=== PATIENT | female | born 1955 | race Caucasian/White ===

== ENCOUNTER → 2020-05-22 10:17 | Outpatient (CLI) | payer MEDICARE, MEDICAID, SELFPAY ==
--- NOTE | ~2020-05-22 | MM_ITS ---
EXAMINATION: MM screening [facility] HISTORY: Screening TECHNIQUE: Craniocaudal and mediolateral oblique 3-D tomosynthesis images were obtained and synthetic 2-D images were generated. CAD analysis was submitted and interpreted. COMPARISON: Comparison to multiple prior studies sequentially, with oldest reviewed study dated 12/2014. BREAST PARENCHYMAL COMPOSITION: There are scattered areas of fibroglandular density. FINDINGS: There is no evidence of suspicious mass, calcification, or architectural distortion to sugg est malignancy in either breast. There has been no suspicious interval change. IMPRESSION: 1. No mammographic evidence of malignancy. 2. Recommend routine screening mammography in one year. BI-RADS Category 1: Negative Reviewed, dictated and finalized at location A.
== END ==
PROVIDERS: Visit Provider Internal Medicine
DX: Z12.31 Encounter for screening mammogram for malignant neoplasm of breast (principal)
CPT/HCPCS: 77063; 77067

== ENCOUNTER → 2021-09-24 15:38 | Outpatient (CLI) | payer MEDICARE, MEDICAID, SELFPAY ==
--- NOTE | ~2021-09-24 | MM_ITS ---
EXAMINATION: MM screening [facility] HISTORY: Screening mammogram TECHNIQUE: Craniocaudal and mediolateral oblique 3-D tomosynthesis images were obtained and synthetic 2-D images were generated. CAD analysis was submitted and interpreted. COMPARISON: 05/22/2020, 02/03/2019, 01/26/2018 BREAST PARENCHYMAL COMPOSITION: The breasts are almost entirely fatty. FINDINGS: Scattered benign-appearing calcifications are present. There is no evidence of suspicious m ass, calcification, or architectural distortion to suggest malignancy in either breast. There has bee n no suspicious interval change. IMPRESSION: 1. No mammographic evidence of malignancy. 2. Recommend routine screening mammography in one year. BI-RADS Category 2: Benign finding(s). Reviewed, dictated and finalized at location A. 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
== END ==
PROVIDERS: PCP Internal Medicine; Visit Provider Internal Medicine
DX: Z12.31 Encounter for screening mammogram for malignant neoplasm of breast (principal)
CPT/HCPCS: 77063; 77067

== ENCOUNTER → 2022-12-10 12:33 | Outpatient (CLI) | payer MEDICARE, MEDICAID, SELFPAY ==
--- NOTE | ~2022-12-10 | MM_ITS ---
EXAMINATION: MM screening [facility] HISTORY: Screening TECHNIQUE: Craniocaudal and mediolateral oblique 3-D tomosynthesis images were obtained and synthetic 2-D images were generated. CAD analysis was submitted and interpreted. COMPARISON: Comparison to multiple prior studies sequentially, with oldest reviewed study dated 01/06. BREAST PARENCHYMAL COMPOSITION: Breast composed of scattered areas of fibroglandular density. FINDINGS: The left breast is stable without evidence for malignancy. There is a developing cluster of segmental calcifications which are indeterminate in the lower inner quadrant of the right breast. IMPRESSION: 1. Developing indeterminate segmental calcifications lower inner quadrant of the right breast. 2. Magnification views are recommended. BI-RADS Category 0: Incomplete: Needs additional imaging evaluation. Reviewed, dictated and finalized at location A. IMPRESSION: 1. Developing indeterminate segmental calcifications lower inner quadrant of th e right breast. 2. Magnification views are recommended. BI-RADS Category 0: Incomplete: Needs additional imaging evaluation.
== END ==
PROVIDERS: PCP Obstetrics & Gynecology Gynecology; Visit Provider Obstetrics & Gynecology Gynecology
DX: Z12.31 Encounter for screening mammogram for malignant neoplasm of breast (principal); R92.8 Other abnormal and inconclusive findings on diagnostic imaging of breast
CPT/HCPCS: 77063; 77067

== ENCOUNTER → 2022-12-20 14:09 | Outpatient (CLI) | payer MEDICARE, MEDICAID, SELFPAY ==
--- NOTE | ~2022-12-20 | MM_ITS ---
EXAMINATION: MM diagnostic mammo unilat RT HISTORY: Follow-up right breast calcifications TECHNIQUE: Additional 3-D tomosynthesis images of the right breast were performed and synthetic 2-D i mages were generated. CAD analysis was submitted and interpreted. COMPARISON: Comparison to multiple prior studies sequentially, with oldest reviewed study dated 01/06. BREAST PARENCHYMAL COMPOSITION: Breast composed of scattered areas of fibroglandular density FINDINGS: There is segmental indeterminate calcifications in the lower inner quadrant of the right br east, middle third. There are no suspicious masses or architectural distortion. IMPRESSION: 1. Clustered segmental calcifications lower inner quadrants of the right breast. 2. Stereotactic right breast biopsy recommended. BI-RADS category 4, suspicious findings. Reviewed, dictated and finalized at location A. IMPRESSION: 1. Clustered segmental calcifications lower inner quadrants of the right breast . 2. Stereotactic right breast biopsy recommended. BI-RADS category 4, suspicious findings.
== END ==
PROVIDERS: PCP Obstetrics & Gynecology Gynecology; Visit Provider Obstetrics & Gynecology Gynecology
DX: R92.8 Other abnormal and inconclusive findings on diagnostic imaging of breast (principal)
CPT/HCPCS: 77065

== ENCOUNTER 2023-01-20 01:13 | Day surgery (SDC) | payer MEDICARE, MEDICAID, SELFPAY ==
[2023-01-16 09:20] VITALS: BMI 26.9
--- NOTE | 2023-01-16 09:26 | PC.NURSE ---
Report to the Outpatient Waiting Room, entrance under the green pavilion located off [facility], at time 0800 on date 01/20/23. Planned Procedure Time: 1100 (NE[facility]LE LOC AT 0900). Time changes happen often and if your time is changed the preop area will call you the afternoon before. - You and your visitor will be asked to self-screen and do not enter if you have any COVID symptoms. - A mask is optional within the hospital at this time. Patients may have clear liquids (water, carbonated beverages, clear teas, apple juice) until 3 hours prior to surgery with a maximum of 20 ounces. - No food from midnight until time of surgery Take the following medications with a SIP of water the morning of surgery: NONE DO NOT STOP ANY OF YOUR OTHER PRESCRIPTION MEDICATIONS PRIOR TO SURGERY EXCEPT THE FOLLOWING Medications to discontinue per physician: VITAMINS/SUPPLEMENTS Date to take last dose: 01/16/23 Please no make-up, nail bulgarian, hairspray, perfume, deodorant, or body powder the day of surgery. No jewelry (including any body piercings) or valuables the day of surgery, leave them at home. Please take a shower or bath the night before, or the morning of, surgery with an antibacterial soap. Wear comfortable, loose fitting clothing. - Jewelry must be removed prior to entering the operating room. Rings and piercings that are not removed may be cut off. - The hospital will not accept responsibility for valuables. - Please leave all valuables, including medications, at home the day of surgery. If you are going home after surgery, a licensed regional owner operator truck driver must drive you home. - NO public transportation without another adult if you receive anesthesia. - We recommend that an adult stay with you for 24 hours following discharge. - We also recommend that you do not drive, make important decision, drink alcoholic beverages, or take any drugs that were not prescribed by your health care provider for at least 24 hours after your discharge time. Follow any additional instructions given to you from your surgeon. If you or anyone in your household have experienced Covid symptoms in the past week, please notify your surgeon or the nurse liaison at the phone number below for possible testing. Telephone instructions given to PT'S MOM - EVELIN and asked if any additional questions and then verbalized understanding. Patient advised to call surgeon office or pre surgery nurse liaison [phone] if any additional questions.
--- NOTE | ~2023-01-20 | MM_ITS ---
EXAMINATION: MM needle loc RT, MM surgical specimen RT DATE: 01/20/2023 10:34 (accession [id number]), 01/20/2023 12:19 (accession [id number]) INDICATION: Patient presents for excisional biopsy of right breast calcifications TECHNIQUE: The procedure for a mammography-guided needle localization was discussed with the patient. Risks and benefits were detailed including risks of bleeding and infection. The patient verbalized u nderstanding and agreed to proceed. A time out was performed to verify the patient's name, date of , and site of procedure. The josue ent was placed in mediolateral compression, and the skin overlying the medial right breast was prepa red in usual fashion. The skin and subcutaneous soft tissues were infiltrated with 1% lidocaine for l ocal anesthesia. Utilizing mammography guidance, two localization needles were advanced into the righ t breast bracketing the calcifications of interest. Two confirmatory films were obtained. The patient tolerated procedure without immediate complication. A specimen radiograph was performed. FINDINGS: Two view confirmatory films of the right breast demonstrate localization wires bracketing t he calcifications of interest. The calcifications are contained within the surgical specimen. IMPRESSION: 1. Successful mammography-guided right breast needle localization. Reviewed, dictated and finalized at location A. IMPRESSION: 1. Successful mammography-guided right breast needle localization.
[2023-01-20 08:45] VITALS: BP 136/78; PULSE 105; RESP 16; TEMP 36.6; O2SAT 100
[2023-01-20] MEDS: ACETAMINOPHEN 500 MG TABLET 1000 MG PO (09:00)
[2023-01-20] MEDS: KETOROLAC 15 MG/ML VIAL (*BKC) IV PUSH (09:00)
[2023-01-20] MEDS: LACTATED RINGERS 1,000 ML 30 ML IV CONT (09:00)
[2023-01-20 09:44] LABS: Anion Gap 5 mmol/L (8-16); Blood Urea Nitrogen 28 mg/dL (7-17); Carbon Dioxide 29 mmol/L (22-30); Chloride 106 mmol/L (98-107); Estimated CRCL calculation 48 ml/min; Estimated Glomerular Filt Rate 56; Glucose 92 mg/dL (65-110); Potassium 3.7 mmol/L (3.4-5.0); Sodium 140 mmol/L (137-145)
--- NOTE | 2023-01-20 11:07 | WPDHPUPDATE1 ---
History and Physical Update Update Date/Time: 01/20/23 11:07 History and Physical has been reviewed, including an updated exam of the patient. There are NO changes in the patient's condition. Risks, benefits, and alternatives have been discussed and questions answered. Patient agrees to proceed with procedure.
[2023-01-20] MEDS: ceFAZolin 2 GM/D5W 50 ML 2 GM/50 ML BAG IVPB (11:22)
[2023-01-20] MEDS: LIDO 1%/EPINEPHRINE 1:100,000 20 ML VIAL 30 ML INFILTRATE (11:22)
--- NOTE | 2023-01-20 11:24 | WPDANESEPPF ---
Anes - Initial Pre Proc Eval Procedure: Operation Date: 01/20/23 11:15 Proposed Procedures p Excisional Biopsy Right Breast with Mammogram Guided Wire Localization - Delvin Suazo MD Date/Time: 01/20/23 11:24 Surgeon: Delvin Suazo MD Pre Op Diagnosis: susp microcalcification right breast Patient Data Age: 67 Gender: F Height: 1.7 m Weight: 78 kg Last Vital Signs Temp 97.8 F 01/20/23 08:45 Pulse 105 H 01/20/23 08:45 Resp 16 01/20/23 08:45 BP 136/78 01/20/23 08:45 Pulse Ox 100 01/20/23 08:45 O2 Del Method Room Air 01/20/23 08:45 Allergies Allergy/AdvReac Type Severity Reaction Status Date / Time No Known Allergies Allergy Verified 01/20/23 09:28 Home Medications Medication Instructions Recorded Confirmed Type aspirin 81 mg capsule 81 mg PO DAILY 01/08/23 01/20/23 History atorvastatin 40 mg tablet 40 mg PO DAILY 01/08/23 01/20/23 History cholecalciferol (vitamin D3) 25 25 mcg PO DAILY 01/08/23 01/20/23 History mcg (1,000 unit) capsule hydrochlorothiazide 12.5 mg tablet 12.5 mg PO DAILY 01/08/23 01/20/23 History lisinopril 20 mg tablet 20 mg PO DAILY 01/08/23 01/20/23 History naproxen 500 mg tablet 500 mg PO BID 01/08/23 01/20/23 History pantoprazole 20 mg tablet,delayed 20 mg PO QAM 01/08/23 01/20/23 History release Laboratory Tests 01/20/23 09:18 Sodium 140 mmol/L (137-145) Potassium 3.7 mmol/L (3.4-5.0) Chloride 106 mmol/L (98-107) Carbon Dioxide 29 mmol/L (22-30) Anion Gap 5 L mmol/L (8-16) BUN 28 H mg/dL (7-17) Creatinine 1.00 mg/dL (0.7-1.0) Estim Creat Clear Calc 48 ml/min Estimated GFR 56 L (59 - ) Glucose 92 mg/dL (65-110) Calcium 9.0 mg/dL (8.4-10.2) Patient hx anesthesia problems: none Family hx anesthesia problems: none Results Review: All pre-operative results and documents have been reviewed as part of the pre-operative evaluation. [facility] Past Medical History Medical History (Updated 01/08/23 @ 14:43 by AYAZ Perdomo) High cholesterol Hypertension Surgical History Surgical History History of cholecystectomy History of tubal ligation Family History Family History Other Diabetes mellitus Heart disease Hypertension Social History Social History Smoking status: Never smoker Alcohol intake: never Substance use: never Substance use type: does not use Living arrangements: alone Occupation/Education: unemployed Spiritual care concerns: No Anes - Eval Final PreProcedure Day of Procedure 01/20/23 11:24 Patient weight: normal Heart: regular rate and rhythm Lungs: clear to auscultation Airway: Mallampati scale class II Neurological: alert and oriented Last oral intake: >/= 8 hours ASA classification: III Emergent: no Anesthetic plan: proceed Anesthesia type and monitoring: general GIVS and standard monitoring Results Review: All pre-operative results and documents have been reviewed as part of the pre-operative evaluation. Informed Consent: The patient's anesthetic plan and its attendant risks and benefits were discussed with the patient/family/POA. Questions were solicited and answers provided to the satisfaction of the patient/family/POA.
--- NOTE | 2023-01-20 11:51 | SUR.OPER ---
Jeniffer notified of surgery start 1151 from Mammography
[2023-01-20 12:51] VITALS: BP 87/56; PULSE 97; RESP 20; O2SAT 100
--- NOTE | 2023-01-20 13:05 | W.PM.PROC2 ---
Procedure Note - Detailed Date of Procedure 01/20/23 Pre-op Diagnosis susp microcalcification right breast Post-op Diagnosis Same Procedure Performed Wire localized excisional right breast biopsy. 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 She presents now for a wire localized excisional right breast biopsy of the suspicious area of microcalcification. Findings Grossly some fibrocystic changes in the right breast in the area of biopsy. No defined suspicious mass. Specimen mammography revealed that the area of microcalcifications in question were within the tissue that was submitted. Description of Procedure After informed consent was obtained patient was brought to the operating room where she was placed supine position then IV sedation was administered by anesthesia. The area the right breast was then prepped and draped in usual sterile fashion. A time-out was then performed correctly identifying the patient as well as procedure to be performed and verified she was on preoperative IV antibiotics. I reviewed the localization mammograms and there were 2 wires which were bracketing the area suspicious microcalcifications. I then injected 1% lidocaine mixed with 0.5% Marcaine in area between the 2 bracketing J wires. I then made a curved incision in the lower inner portion of the right breast and dissected down through the dermis skin with the scalpel. I then tunneled laterally in the subcapsular space license scissor dissection and then brought the most lateral localizing wire into my incision. I also tunneled subcapsular space with scissor dissection to the more medial localizing guidewire and brought this into my incision as well. I then proceeded to dissect down along the shaft both guidewires until I reached the tips. I then used a combination of sharp scissor dissection to take a wide excision the breast tissue between the 2 getting localization guidewires. Once the space was completely excised from the breast it was sent to pathology for specimen radiograph. The radiologist confirmed that the area suspicious microcalcifications was within the tissues I submitted. I then irrigated out the incision with sterile saline solution. Stasis in the breast parenchyma was then achieved utilizing electrocautery. I then proceeded to close the space within the medial quadrant of the right breast. Interrupted 2-0 plain gut sutures was then used to approximate the breast tissue and try to obliterate as much space as I could. The breast capsule was then cross utilizing noted the to 0 plain gut sutures. The skin edges were approximated lies in a running subcuticular 4 Monocryl suture. The incision was then cleaned and then skin glue still breast dressing was applied. Discharge patient home when stable. May remove dressing in 24 hr and then shower. No soaking incision under water x2 weeks. Protect surgical site from any trauma. Follow up in the office with Dr. Suazo in 1- 2 weeks. Call [phone] for an appointment. Resume home medications and any prescriptions for postoperative narcotic medication will be sent to the patient's pharmacy. If taking any blood thinners, okay to resume blood thinners in 24hours. No driving 3 days or until no longer taking any narcotic pain medications. Wear a supportive bra night day until seen in the clinic. Implants None Estimated Blood Loss 30 Drains No Packing No Pathology Yes Complications No immediate complications Condition Stable Disposition PACU [facility] Billing Surgery - Charge Forward: Surgery Billing
[2023-01-20 13:15] VITALS: BP 110/62; PULSE 86; RESP 20
[2023-01-20 13:45] VITALS: BP 122/70; PULSE 80; RESP 20
== END 2023-01-20 13:00 | disposition home or self-care (01) ==
PROVIDERS: PCP Internal Medicine; Visit Provider Surgery
PROC: (CPT 19125; principal; 2023-01-20 11:15)
DX: N60.11 Diffuse cystic mastopathy of right breast (principal); I10 Essential (primary) hypertension; E78.00 Pure hypercholesterolemia, unspecified; Z79.82 Long term (current) use of aspirin
CPT/HCPCS: 19125; 19281; 36415; 76098; 80048; 88307; A9270; C1769; J0690; J1885; J2250; J2704; J3010; J7120

== ENCOUNTER 2024-07-23 10:43 | Outpatient (CLI) | payer MEDICARE, MEDICAID, SELFPAY ==
--- NOTE | ~2024-07-23 | MM_ITS ---
EXAMINATION: MM screening [facility] BI w l[facility] HISTORY: Screening mammogram TECHNIQUE: Craniocaudal and mediolateral oblique 3-D tomosynthesis images were obtained and synthetic 2-D images were generated. CAD analysis was submitted and interpreted. COMPARISON: 12/10/2022, 09/24/2021, 05/22/2020, 02/03/2019 BREAST PARENCHYMAL COMPOSITION:Not Dense. There are scattered areas of fibroglandular density. FINDINGS: No suspicious mass, calcification, or architectural distortion are identified in either jenny ast to suggest malignancy. There has been no suspicious interval change. IMPRESSION: No mammographic evidence of malignancy. Recommend routine screening mammography in one year. BI-RADS Category 1: Negative Reviewed, dictated and finalized at location .
== END 2024-07-23 10:44 | disposition home or self-care (01) ==
PROVIDERS: PCP Internal Medicine; Visit Provider Internal Medicine
DX: Z12.31 Encounter for screening mammogram for malignant neoplasm of breast (principal)
CPT/HCPCS: 77063; 77067